=== PATIENT | female | born 1990 | race Two or more races ===

== ENCOUNTER 2016-08-04 12:43 | Emergency (ER) | payer OTHER ==
[~2016-08-04] VITALS: Ht 167.6 cm; Wt 53.5 kg
[2016-08-04] MEDS ORDERED: FAMOTIDINE (20 MG) 20 MG TABLET ONE ×2 (13:22→13:25)
[2016-08-04] MEDS ORDERED: ONDANSETRON 4 MG TAB.RAPDIS ONE ×2 (13:22→13:25)
[2016-08-04] MEDS ORDERED: ONDANSETRON 4 MG TAB.RAPDIS SL ONE (13:30)
[2016-08-04] MEDS ORDERED: FAMOTIDINE (20 MG) 20 MG TABLET PO ONE (13:30)
[2016-08-04 13:38] LABS: APPEARANCE,URINE CLEAR (CLEAR); COLOR,URINE YELLOW (YELLOW)
[2016-08-04 13:39] LABS: BILIRUBIN,URINE SMALL (NEGATIVE); BLOOD, URINE NEGATIVE Ery/uL (NEGATIVE); KETONES,URINE TRACE (NEGATIVE); PH,URINE 5.5 (5.0-8.0); PROTEIN,URINE TRACE mg/dl (NEGATIVE); UGLUCOSE NEGATIVE (NEGATIVE)
[2016-08-04 13:40] LABS: LEUKOCYTE ESTERASE ,URINE NEGATIVE (NEGATIVE); NITRITE, URINE NEGATIVE (NEGATIVE); PREGNANCY TEST URINE QUAL NEGATIVE (NEGATIVE)
[2016-08-04 14:06] LABS: BACTERIA,URINE Few /HPF (None Seen); SQUAMOUS EPITHELIAL CELL,UR Few /HPF (None Seen)
[2016-08-04 14:16] VITALS: BP 140/84
== END 2016-08-04 14:17 | disposition home or self-care (01) ==
LOC: ER 12:47
DX: R11.0 Nausea (principal)
CPT/HCPCS: 81001; 84703; 99283; A4606; Q0162 ×2; Z7610; 81000-TC

== ENCOUNTER 2018-08-03 14:51 | Emergency (ER) | payer OTHER ==
[~2018-08-03] VITALS: Ht 167.6 cm; Wt 54.4 kg
[2018-08-03 14:57] VITALS: BP 106/66
--- NOTE | 2018-08-03 15:22 | NUR ---
PATIENT REFUSED MOTRIN, WILL TAKE IT AT HOME.
[2018-08-03] MEDS ORDERED: IBUPROFEN 600 MG TABLET PO ONE (15:30)
== END 2018-08-03 15:22 | disposition home or self-care (01) ==
LOC: ER 14:56
DX: J06.9 Acute upper respiratory infection, unspecified (principal)